=== PATIENT | female | born 1985 | race Caucasian/White ===

== ENCOUNTER 2016-04-09 15:45 | Emergency (ER) | payer OTHER ==
[2016-04-09 17:14] VITALS: BP 120/75
--- NOTE | 2016-04-09 17:45 | UC ---
FLU HPI - HPI Summary HPI Summary: 3d of progressive fatigue, body aches, malaise, poor appetite, nausea, mild headache, dry cough, mild ST. Did get a flu shot. Works in the lab with patients. No vomiting or diarrhea, poor appetite. No measured fevers but has had chills. - History of Current Complaint Chief Complaint: UCGeneralIllness Stated Complaint: COUGH,CONGESTION,THROAT Time Seen by Provider: 04/09/16 17:31 Hx Obtained From: Patient Hx Last Menstrual Period: DOES NOT HAVE REG PERIODS HAS NEXPLAMON Onset/Duration: Gradual Onset, Lasting Days - 3 Severity Currently: Mild Severity Initially: Mild Associated Signs & Symptoms: Positive: Fever - subjective, Myalgia, Sore Throat , Nasal Congestion, Headache Related Hx: Possible Flu/Infectious Exposure - Risk Factors Influenza Risk Factors: Negative - Allergy/Home Medications Allergies/Adverse Reactions: Allergies Allergy/AdvReac Type Severity Reaction Status Date / Time Latex Allergy Rash Verified 04/09/16 17:13 Home Medications: Home Medications Biotin 1 mg PO DAILY 04/09/16 [History Confirmed 04/09/16] Calcium Citrate TAB* [Citracal TAB*] 200 mg PO BID 04/09/16 [History Confirmed 04/09/16] Cholecalciferol TAB* [Vitamin D TAB*] 1,000 unit PO DAILY 04/09/16 [History Confirmed 04/09/16] Cyanocobalamin [Vitamin B 12] 100 mcg PO DAILY 04/09/16 [History Confirmed 04/09] PMH/Surg Hx/FS Hx/Imm Hx Endocrine History Of: Denies: Diabetes, Thyroid Disease, Hyperthyroidism, Hypothyroidism, Dyslipidemia Cardiovascular History Of: Reports: Hypertension Denies: Cardiac Disorders, Pacemaker/ICD, Myocardial Infarction, Congestive Heart Failure, Atrial Fibrillation, Deep Vein Thrombosis, Bleeding Disorders Respiratory History Of: Denies: COPD, Asthma, Bronchitis, Pneumonia, Pulmonary Embolism GI/ History Of: Denies: Gastroesophageal Reflux, Ulcer, Gastrointestinal Bleed, Gall Bladder Disease, Kidney Stones, Diverticulitis, Renal Disease, Urosepsis Neurological History Of: Denies: TIA, CVA, Dementia, Seizures, Migraine Psychological History Of: Reports: Anxiety Denies: Depression, Bipolar Disorder, Schizophrenia, Post Traumatic Stress Disorder Cancer History Of: Denies: Lung Cancer, Colorectal Cancer, Breast Cancer, Prostate Cancer, Cervical Cancer Other History Of: Negative For: HIV, Hepatitis B, Hepatitis C - Surgical History Surgical History: Yes Surgery Procedure, Year, and Place: BREAST REDUCTION 2008. Gastric bypass 10/22 - Family History Known Family History: Positive: None Negative: Renal Disease, Blood Disorder - Social History Occupation: Employed Full-time - lab Lives: With Family Alcohol Use: Rare Substance Use Type: None Smoking Status (MU): Former Smoker Type: Cigarettes - Immunization History Most Recent Tetanus Shot: OVER 5 YEARS AGO. Review of Systems Constitutional: Fever, Chills, Fatigue - this is worst symptom today Skin: Negative Eyes: Negative ENT: Sore Throat - mild, worse yesterday Respiratory: Cough - ry Cardiovascular: Negative Gastrointestinal: Negative Genitourinary: Negative Motor: Negative Neurovascular: Negative Musculoskeletal: Myalgia - diffuse Neurological: Headache - mild All Other Systems Reviewed And Are Negative: Yes Physical Exam Triage Information Reviewed: Yes Appearance: Well-Appearing, Well-Nourished, Pain Distress - looks tired Vital Signs: Initial Vital Signs Temp 98.1 F 04/09/16 17:09 Pulse 94 04/09/16 17:09 Resp 16 04/09/16 17:09 BP 120/75 04/09/16 17:09 Pulse Ox 99 04/09/16 17:09 Vital Signs Reviewed: Yes Eye Exam: Normal Eyes: Positive: Conjunctiva Clear ENT: Positive: Hearing grossly normal, Pharynx normal, TMs normal. Negative: Nasal congestion, Tonsillar swelling, Tonsillar exudate, Trismus, Muffled/ hoarse voice Neck exam: Normal Neck: Positive: Supple Respiratory Exam: Normal Respiratory: Positive: Chest non-tender, Lungs clear, Normal breath sounds, No respiratory distress, No accessory muscle use Cardiovascular Exam: Normal Musculoskeletal Exam: Normal Neurological Exam: Normal Psychological Exam: Normal Skin Exam: Normal Flu Course/Dx - Differential Dx/Diagnosis Differential Diagnosis/HQI/PQRI: Influenza, Upper Respiratory Infection Provider Diagnoses: influenza Discharge - Discharge Plan Condition: Stable Disposition: HOME Patient Education Materials: Influenza (ED) Forms: *Work Release Referrals: Preeti Jones MD [Primary Care Provider] -
== END 2016-04-09 17:55 | disposition home or self-care (01) ==
LOC: UCCORT 15:45
DX: J11.1 Influenza due to unidentified influenza virus with other respiratory manifestations (principal); Z87.891 Personal history of nicotine dependence; Z98.84 Bariatric surgery status
CPT/HCPCS: 99211; G0463

== ENCOUNTER 2017-07-20 19:22 | Emergency (ER) | payer OTHER ==
[2017-07-20 19:52] VITALS: BP 152/73
[2017-07-20] MEDS ORDERED: HYDROcodone/ACETAMIN 5-325 MG* 1 TAB PO ONE (20:01)
--- NOTE | 2017-07-20 20:21 | UC ---
Lower Extremity/Ankle HPI - HPI Summary HPI Summary: running in softball and had a sudden pop with pain and swelling to L anterior thigh. - History of Current Complaint Hx Obtained From: Patient Hx Last Menstrual Period: [id number] Onset/Duration: Sudden Onset Pain Intensity: 10 Aggravating Factor(s): Ambulation Alleviating Factor(s): Nothing <Angelika Donovan - Last Filed: 07/20/17 20:15> <Malina Warner - Last Filed: 07/20/17 22:41> - History of Current Complaint Chief Complaint: UCLowerExtremity Stated Complaint: LEG INJURY (L) Time Seen by Provider: 07/20/17 20:14 - Allergies/Home Medications Allergies/Adverse Reactions: Allergies Allergy/AdvReac Type Severity Reaction Status Date / Time latex Allergy Rash Verified 07/20/17 19:56 NSAIDS (Non-Steroidal Allergy See Comment Verified 07/20/17 19:56 Anti-Inflamma PMH/Surg Hx/FS Hx/Imm Hx Previously Healthy: Yes Other History Of: Negative For: HIV, Hepatitis B, Hepatitis C - Surgical History Surgical History: Yes Surgery Procedure, Year, and Place: BREAST REDUCTION 2009. Gastric bypass 10/22 - Family History Known Family History: Positive: None Negative: Renal Disease, Blood Disorder - Social History Lives: With Family Alcohol Use: Rare Substance Use Type: None Smoking Status (MU): Former Smoker Type: Cigarettes - Immunization History Most Recent Tetanus Shot: OVER 5 YEARS AGO. Vaccination Up to Date: Yes <Angelika Donovan - Last Filed: 07/20/17 20:15> Review of Systems Constitutional: Negative Skin: Negative Eyes: Negative ENT: Negative Respiratory: Negative Cardiovascular: Negative Gastrointestinal: Negative Genitourinary: Negative Motor: Negative Neurovascular: Negative Musculoskeletal: Other: - pain/swelling L anterior thigh Neurological: Negative Psychological: Negative Is Patient Immunocompromised?: No All Other Systems Reviewed And Are Negative: Yes <Angelika Donovan - Last Filed: 07/20/17 20:15> Physical Exam Triage Information Reviewed: Yes Appearance: Pain Distress Vital Signs: Initial Vital Signs Temp 98.9 F 07/20/17 19:47 Pulse 93 07/20/17 19:47 Resp 18 07/20/17 19:47 BP 152/73 07/20/17 19:47 Pulse Ox 99 07/20/17 19:47 Eyes: Positive: Conjunctiva Clear ENT: Positive: Normal ENT inspection Neck: Positive: Supple, Nontender, No Lymphadenopathy Respiratory: Positive: Lungs clear, Normal breath sounds Cardiovascular: Positive: RRR, No Murmur Abdomen Description: Positive: Nontender, No Organomegaly, Soft Bowel Sounds: Positive: Present Musculoskeletal: Positive: Other: - Bare except underware BLE's: L anterior mid thigh with mild swelling and very tender. pt able to actively flex and extend at hip with limited rom due to pain. also able to flex and extend at knee. lower leg has full s/v/m function. She was not able to hold the leg off table in extension, c/o sever pain to mid thigh. Patella not riding high or low. No bony deformity or tenderness. Neurological: Positive: Alert Psychological: Positive: Age Appropriate Behavior Skin Exam: Normal <Angelika Donovan - Last Filed: 07/20/17 20:15> Vital Signs: Initial Vital Signs Temp 98.9 F 07/20/17 19:47 Pulse 93 07/20/17 19:47 Resp 18 07/20/17 19:47 BP 152/73 07/20/17 19:47 Pulse Ox 99 07/20/17 19:47 <Malina Warner - Last Filed: 07/20/17 22:41> Diagnostics - Radiology No standard instances Xray Interpretation: No Acute Changes Radiology Interpretation Completed By: Radiologist <Angelika Donovan - Last Filed: 07/20/17 20:15> Lower Extremity Course/Dx - Course Course Of Treatment: exam c/w strain L quadricep. [facility], refer to orthopedics - Differential Dx/Diagnosis Provider Diagnoses: Strain L Quadricep <Angelika Donovan - Last Filed: 07/20/17 20:15> Discharge - Sign-Out/Discharge Documenting (check all that apply): Discharge/Admit/Transfer - Billing Disposition and Condition Condition: STABLE Disposition: HOME <Angelika Donovan - Last Filed: 07/20/17 20:15> - Billing Disposition and Condition Condition: STABLE Disposition: HOME <Malina Warner - Last Filed: 07/20/17 22:41> - Discharge Plan Condition: Stable Disposition: HOME Prescriptions: HYDROcodone/ACETAMIN 5-325 MG* [[place] 5-325 TAB*] 1 tab PO Q6H PRN 3 Days #12 tab MDD 4 PRN Reason: Pain Patient Education Materials: Muscle Strain (ED) Forms: *Work Release Referrals: Robert Orozco DO [Primary Care Provider] - Rufino Kaye MD [Medical Doctor] - As Soon As Possible Additional Instructions: USE THE JUSTO AND CRUTCHES UNTIL CLEARED. REMOVE JUSTO AT BEDTIME. Attestation Statement User Type: Provider - I was available for consult. This patient was seen by the [facility]. The patient was not presented to, seen by, or examined by me. -Ace <Malina Warner - Last Filed: 07/20/17 22:41>
--- NOTE | 2017-07-20 20:49 | RAD ---
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 COMPARISON: June 01, 2009 TECHNIQUE: AP, lateral, and oblique views were obtained. FINDINGS: The bony structures, joint spaces, and soft tissues are normal for age. IMPRESSION: NEGATIVE EXAMINATION.
== END 2017-07-20 21:22 | disposition home or self-care (01) ==
LOC: UCCORT 19:22
DX: S76.112A Strain of left quadriceps muscle, fascia and tendon, initial encounter (principal); Z87.891 Personal history of nicotine dependence; X58.XXXA Exposure to other specified factors, initial encounter; Y93.64 Activity, baseball; Y92.9 Unspecified place or not applicable
CPT/HCPCS: 99213; G0463